=== PATIENT | female | born 1975 | race Caucasian/White ===

== ENCOUNTER → 2024-10-04 | Outpatient (CLI) | payer OTHER ==
[2024-10-04 10:37] LABS: BASO # 0.02 K/mm3 (0.02-0.10); EOS # 0.22 K/mm3 (0.04-0.40); EOS % 2.1 % (1.0-5.0); HEMATOCRIT 39.5 % (37.0-47.0); HEMOGLOBIN 12.6 g/dL (12.5-16.0); LYMPH# 2.48 K/mm3 (1.50-4.00); MEAN CELL VOLUME 84 fl (78-100); MEAN CORPUSCULAR HEMOGLOBIN 27 pg (27-31); MEAN CORPUSCULAR HGB CONC 32 g/dL (33-37); MEAN PLATELET VOLUME 9.1 fl (7.4-10.4); MONO # 0.71 K/mm3 (0.20-0.80); NEU # 7.12 K/mm3 (1.40-6.50); PLATELET COUNT 333 K/mm3 (130-400); RED BLOOD COUNT 4.68 M/mm3 (4.10-5.30); WHITE BLOOD COUNT 10.6 K/mm3 (4.8-10.8)
[2024-10-04 10:54] LABS: ALBUMIN 4.3 g/dL (3.5-5.0)
[2024-10-04 10:55] LABS: CALCIUM 9.3 mg/dL (8.3-10.5)
[2024-10-04 10:58] LABS: TOTAL BILIRUBIN 0.2 mg/dL (0.2-1.2)
[2024-10-04 11:00] LABS: PH-URINE 5.5 (5.0 - 8.0); URINE APPEARANCE SLIGHTLY CLOUDY (CLEAR); URINE BILIRUBIN NEGATIVE (NEGATIVE); URINE BLOOD TRACE-INTACT (NEGATIVE); URINE COLOR YELLOW (YELLOW); URINE GLUCOSE NEGATIVE (NEGATIVE); URINE KETONE TRACE (NEGATIVE); URINE LEUKOCYTE ESTERASE 1+ (NEGATIVE); URINE MUCUS PRESENT (NOT PRESENT); URINE NITRATE NEGATIVE (NEGATIVE); URINE PROTEIN(semi-quant) 1+ (NEGATIVE); URINE WBC 16-30 /hpf (0-3)
[2024-10-04 11:03] LABS: MAGNESIUM 1.84 mg/dL (1.60-2.60)
== END ==
LOC: LAB 10:12
PROVIDERS: Internal Medicine
DX: I10 Essential (primary) hypertension (principal); K90.9 Intestinal malabsorption, unspecified; E11.9 Type 2 diabetes mellitus without complications; E78.2 Mixed hyperlipidemia